=== PATIENT | male | born 1970 | race Caucasian/White ===

== ENCOUNTER 2017-12-16 07:40 | Day surgery (SDC) | payer MEDICAID ==
[2017-12-15 16:04] LABS: BASOPHILS % (AUTO) 0.3 % (0-1); EOSINOPHILS # (AUTO) 0.7 X10'3 (0-0.9); EOSINOPHILS % (AUTO) 8.8 % (0-6); LYMPHOCYTES # (AUTO) 2.5 X10'3 (1.1-4.8); LYMPHOCYTES % (AUTO) 29.8 % (21-51); MEAN CORPUSCULAR HEMOGLOBIN 31.6 PG (27.0-31.0); MEAN CORPUSCULAR HGB CONC 34.3 % (33.0-36.5); MEAN CORPUSCULAR VOLUME 92.2 FL (78-98); MEAN PLATELET VOLUME 9.4 FL (7.4-10.4); MONOCYTES # (AUTO) 0.7 X10'3 (0-0.9); MONOCYTES % (AUTO) 8.8 % (2-12); NEUTROPHILS # (AUTO) 4.4 X10'3 (1.8-7.7); NEUTROPHILS % (AUTO) 52.3 % (42-75); PRE OP HEMATOCRIT 40.4 % (42.0-52.0); PRE OP HEMOGLOBIN 13.9 g/dL (14.0-17.9); PRE OP PLATELET COUNT 141 X10'3 (140-440); RED BLOOD COUNT 4.38 X10'6 (4.70-6.10)
[2017-12-15 16:16] LABS: ALBUMIN 3.8 G/DL (3.4-5.0); ALBUMIN/GLOBULIN RATIO 1.1 (1.1-1.5); ALKALINE PHOSPHATASE 44 IU/L (46-116); BLOOD UREA NITROGEN 16 MG/DL (7-18); CALCIUM 8.6 MG/DL (8.5-10.1); CHLORIDE 106 MMOL/L (99-107); PRE OP ALT 70 U/L (30-65); PRE OP ANION GAP 9 (8-16); PRE OP AST 32 U/L (10-37); PRE OP BILIRUB, TOTAL 0.3 MG/DL (0.0-1.0); PRE OP GLUCOSE 110 MG/DL (70-104); PRE OP SODIUM 146 MMOL/L (135-145); TOTAL CARBON DIOXIDE 30.9 MMOL/L (24-32); TOTAL PROTEIN 7.2 G/DL (6.4-8.2); eGFR 80 ML/MIN
[2017-12-15 16:17] LABS: PRE OP PROTIME 10.2 SECONDS (9.0-12.0)
[2017-12-15 16:18] LABS: PRE OP POTASSIUM 3.2 MMOL/L (3.4-5.1)
[~2017-12-16] VITALS: Ht 188 cm; Wt 140.8 kg
[~2017-12-16 07:40] MED LIST: ALBU8.5H8 INH; AMLO5TAB4 PO; ASPI-1265 PO; ATOR80TA PO; BENA40TA2 PO; CHLO25TA10; CYCL-1 PO; DOCUMENT DATE & TIME OF BETA-BLOCKER PO ONE; FLO0.4C PO; HYDR25TA4 PO; IBUP-1986 PO; METO-539 PO; TICA90TA PO; albuterol 2.5 MG/3 ML nebule NEB ONE; ceFAZolin 2gm in dextrose, iso 100 ML IV ONE; famotidine 20mg tablet PO ONE; ringers solution, lacted 1,000 ML IV SCH
[2017-12-16 08:00] VITALS: BP 134/94
[2017-12-16] MEDS ORDERED: LIDOcaine 1% (10mg/ml) 2ml vial ONE (08:25)
[2017-12-16] MEDS ORDERED: ringers solution, lacted 1,000 ML IV SCH (09:21)
[2017-12-16] MEDS ORDERED: labetalol 20mg/4ml (5mg/ml) syringe IV PRN (09:25)
[2017-12-16] MEDS ORDERED: meperidine/PF 25mg/ml syringe IV PRN ×2 (09:25)
[2017-12-16] MEDS ORDERED: ondansetron/PF 4mg/2ml inj IV PRN (09:25)
[2017-12-16] MEDS ORDERED: hydrALAZINE 20mg/ml inj. IV PRN (09:25)
[2017-12-16] MEDS ORDERED: BUPIVAcaine/PF 2.5 mg/ml (0.25%) 30ml vial ONE (09:30)
[2017-12-16] MEDS ORDERED: LIDOcaine 0.5% (5mg/ml) 50ml vial ONE (09:39)
[2017-12-16] MEDS ORDERED: fentaNYL/PF 50MCG/1 ML 2ML syringe ONE (09:49)
[2017-12-16] MEDS ORDERED: midazolam 2 mg/2 ml injection ONE ×2 (09:49)
[2017-12-16 09:52] LABS: ALBUMIN 3.5 G/DL (3.4-5.0); ANION GAP 10 (8-16); BLOOD UREA NITROGEN 17 MG/DL (7-18); CALCIUM 8.9 MG/DL (8.5-10.1); CHLORIDE 105 MMOL/L (99-107); GLUCOSE 125 MG/DL (70-104); POTASSIUM 3.4 MMOL/L (3.5-5.1); SODIUM 145 MMOL/L (135-145); TOTAL CARBON DIOXIDE 30.3 MMOL/L (24-32); eGFR 80 ML/MIN
[2017-12-16 10:17] VITALS: BP 134/75
[2017-12-16 10:27] VITALS: BP 134/75
[2017-12-16 10:37] VITALS: BP 130/83
== END 2017-12-16 10:55 | disposition home or self-care (01) ==
LOC: PAS 07:40
PROVIDERS: ATTEND Orthopaedic Surgery Hand Surgery
DX: G56.01 Carpal tunnel syndrome, right upper limb (principal); M65.311 Trigger thumb, right thumb; I25.2 Old myocardial infarction; J44.9 Chronic obstructive pulmonary disease, unspecified; N40.0 Benign prostatic hyperplasia without lower urinary tract symptoms; G47.30 Sleep apnea, unspecified; I25.10 Atherosclerotic heart disease of native coronary artery without angina pectoris; I10 Essential (primary) hypertension; E66.01 Morbid (severe) obesity due to excess calories; Z68.39 Body mass index [BMI] 39.0-39.9, adult; Z79.82 Long term (current) use of aspirin; Z95.5 Presence of coronary angioplasty implant and graft; Z79.1 Long term (current) use of non-steroidal anti-inflammatories (NSAID); Z87.891 Personal history of nicotine dependence; Z79.899 Other long term (current) drug therapy; Z79.01 Long term (current) use of anticoagulants
CPT/HCPCS: 26055; 29848; 36415; 80048; 80053; 85025; 85610; 85730; 93005; 94640; 94760; A6449; J0690; J2001; J2250; J3010; J3490; J7120; A7000

== ENCOUNTER 2018-01-27 08:43 | Day surgery (SDC) | payer MEDICAID ==
[2018-01-26 15:16] LABS: BASOPHILS % (AUTO) 0.4 % (0-1); EOSINOPHILS # (AUTO) 0.6 X10'3 (0-0.9); EOSINOPHILS % (AUTO) 7.3 % (0-6); LYMPHOCYTES # (AUTO) 2.5 X10'3 (1.1-4.8); LYMPHOCYTES % (AUTO) 32.8 % (21-51); MEAN CORPUSCULAR HGB CONC 34.7 % (33.0-36.5); MEAN CORPUSCULAR VOLUME 92.4 FL (78-98); MEAN PLATELET VOLUME 9.3 FL (7.4-10.4); MONOCYTES # (AUTO) 0.7 X10'3 (0-0.9); MONOCYTES % (AUTO) 9.6 % (2-12); NEUTROPHILS # (AUTO) 3.8 X10'3 (1.8-7.7); NEUTROPHILS % (AUTO) 49.9 % (42-75); PRE OP HEMATOCRIT 39.2 % (42.0-52.0); PRE OP HEMOGLOBIN 13.6 g/dL (14.0-17.9); PRE OP PLATELET COUNT 142 X10'3 (140-440); RED BLOOD COUNT 4.25 X10'6 (4.70-6.10); RED CELL DISTRIBUTION WIDTH 13.1 % (11.5-14.5)
[2018-01-26 15:35] LABS: ALBUMIN 3.6 G/DL (3.4-5.0); ALKALINE PHOSPHATASE 44 IU/L (46-116); BLOOD UREA NITROGEN 13 MG/DL (7-18); BUN/CREATININE RATIO 12.9 (5.4-32.0); CALCIUM 8.7 MG/DL (8.5-10.1); CHLORIDE 102 MMOL/L (99-107); CREATININE 1.01 MG/DL (0.60-1.10); PRE OP ALT 76 U/L (30-65); PRE OP ANION GAP 9 (8-16); PRE OP AST 36 U/L (10-37); PRE OP BILIRUB, TOTAL 0.3 MG/DL (0.0-1.0); PRE OP GLUCOSE 180 MG/DL (70-104); PRE OP SODIUM 141 MMOL/L (135-145); TOTAL CARBON DIOXIDE 30.5 MMOL/L (24-32); TOTAL PROTEIN 7.1 G/DL (6.4-8.2); eGFR 79 ML/MIN
[2018-01-26 15:42] LABS: PRE OP POTASSIUM 3.1 MMOL/L (3.4-5.1)
[2018-01-27] VITALS (7 sets, daily range): BP systolic 122–139; BP diastolic 58–77
[~2018-01-27] VITALS: Ht 188 cm; Wt 144.0 kg
[~2018-01-27 08:43] MED LIST changes: -DOCUMENT DATE & TIME OF BETA-BLOCKER PO ONE; +FAMO20TA8 PO; -albuterol 2.5 MG/3 ML nebule NEB ONE; -ceFAZolin 2gm in dextrose, iso 100 ML IV ONE; +ceFOXitin 2 GM ADDvantage bag 100 ML IV ONE
[2018-01-27] MEDS ORDERED: LIDOcaine 1% (10mg/ml) 2ml vial ONE (09:18)
[2018-01-27 09:50] LABS: ISTAT ANION GAP 17 (8-12); ISTAT BUN 14 mg/dL (6-19); ISTAT CL 99 mmol/L (99-107); ISTAT CREATININE 0.9 mg/dL (0.8-1.3); ISTAT GLUCOSE 170 mg/dL (70-104); ISTAT HGB 13.9 g/dl (14.0-18.0); ISTAT Hct 41 %PCV (42-52); ISTAT IONIZED CALCIUM 1.19 mmol/L (1.03-1.32); ISTAT K 3.3 mmol/L (3.5-5.1); ISTAT NA 142 mmol/L (135-145); ISTAT TOTAL CO2 26 mmol/L (24-32); ISTAT eGFR > 90 ML/MIN; POC BUN/CREATININE RATIO 15.6 (5.4-32.0)
[2018-01-27] MEDS ORDERED: BUPIVAcaine/PF 2.5 mg/ml (0.25%) 30ml vial ONE (11:07)
[2018-01-27] MEDS ORDERED: MIDAZolam 5mg/5ml vial ONE (11:49)
[2018-01-27] MEDS ORDERED: fentaNYL /PF 50mcg/ml 5ml ampule ONE (11:50)
[2018-01-27] MEDS ORDERED: propofol inj 20 ML IV ONE (11:52)
== END 2018-01-27 13:30 | disposition home or self-care (01) ==
LOC: PRE-OP 08:43
PROVIDERS: ATTEND Orthopaedic Surgery Hand Surgery
DX: G56.02 Carpal tunnel syndrome, left upper limb (principal); I10 Essential (primary) hypertension; M19.90 Unspecified osteoarthritis, unspecified site; J44.9 Chronic obstructive pulmonary disease, unspecified; I25.2 Old myocardial infarction; E66.9 Obesity, unspecified; E78.5 Hyperlipidemia, unspecified; N40.0 Benign prostatic hyperplasia without lower urinary tract symptoms; Z79.82 Long term (current) use of aspirin; Z98.890 Other specified postprocedural states; Z95.5 Presence of coronary angioplasty implant and graft; Z87.891 Personal history of nicotine dependence; Z79.1 Long term (current) use of non-steroidal anti-inflammatories (NSAID); Z68.41 Body mass index [BMI] 40.0-44.9, adult; Z79.899 Other long term (current) drug therapy
CPT/HCPCS: 29848; 36415; 80047; 80053; 85025; A6258; A6449; J0694; J2250; J2704; J3010; J3490; J7120; A7000